=== PATIENT | male | born 1940 | race Caucasian/White ===

== ENCOUNTER 2021-05-29 10:10 | Observation (INO) ==
[2021-05-29 11:49] LABS: Basophils # 0.1 K/mcL (0.0-0.2); Basophils % 0.6 %; Eosinophils # 0.6 K/mcL (0.0-0.6); Eosinophils % 5.3 %; Hematocrit 32.2 % (37.5-50.1); Hemoglobin 10.2 g/dL (12.9-16.9); Immature Granulocytes % 2.5 % (0-4); Lymphocytes # 3.5 K/mcL (0.6-4.6); Lymphocytes % 32.1 %; Mean Corpuscular HGB Conc 31.7 g/dL (31.6-35.5); Mean Corpuscular Hemoglobin 28.2 pg (28.0-33.3); Mean Platelet Volume 10.3 fL (9.4-12.4); Monocytes # 0.9 K/mcL (0.0-1.3); Monocytes % 7.8 %; Neutrophils # 5.6 K/mcL (1.6-8.9); Platelet Count 245 K/mcL (140-400); Red Blood Count 3.62 M/mcL (4.19-5.50); Red Cell Distribution Width 13.2 % (11.5-14.5); Segmented Neutrophils % 51.7 %; White Blood Count 10.8 K/mcL (4.3-11.1)
[2021-05-29] MEDS ORDERED: Ipratropium/Albuterol Neb 3 ML ONE (11:55)
[2021-05-29] MEDS: Ipratropium/Albuterol Neb 3 ML IH ONE (11:59)
[2021-05-29 12:00] LABS: INR 1.1
[2021-05-29 12:02] LABS: Activated Partial Thrombo Time 31.6 Seconds (26.0-36.0)
[2021-05-29 12:03] LABS: Alanine Aminotransferase 13 Units/L (7-52); Albumin 3.7 g/dL (3.5-5.7); Albumin/Globulin Ratio 1.2 (1.1-2.2); Alkaline Phosphatase 155 Units/L (34-104); Aspartate Amino Transferase 13 Units/L (13-39); BUN/Creatinine Ratio 31 (6-26); Bilirubin,Total 0.3 mg/dL (0.3-1.0); Blood Urea Nitrogen 41 mg/dL (8-23); Calcium 8.6 mg/dL (8.6-10.3); Carbon Dioxide 25 mEq/L (23-29); Chloride 104 mEq/L (98-107); Globulin 3.2 g/dL (2.4-3.5); Glucose 91 mg/dL (70-105); Magnesium 1.7 mg/dL (1.6-2.6); Osmolality,Calculated 290 (280-300); Phosphorous 2.7 mg/dL (2.7-4.5); Sodium 135 mEq/L (136-145); Total Protein 6.9 g/dL (6.4-8.9); eGFR For African Americans > 60 (> 60); eGFR For Non-African Americans 52 (> 60)
[2021-05-29 12:13] LABS: Bilirubin,Urine Negative (Negative); Blood,Urine Negative (Negative); Clarity,Urine Clear (Clear); Color,Urine Yellow (Yellow); Glucose,Urine (UA) Normal (Normal); Ketones,Urine Negative (Negative); Leukocyte Esterase,Urine Trace (Negative); Nitrite,Urine Negative (Negative); Protein,Urine Negative (Neg-Trace); Urobilinogen,Urine Normal (Normal)
[2021-05-29] MEDS ORDERED: Isovue-370 500 ML BOTTLE IVP ONE (12:23)
[2021-05-29 12:33] LABS: WBC,Urine 0-3 per hpf (0-3)
[2021-05-29] MEDS ORDERED: *HR* Heparin 5,000 UNIT/ML VIAL IVP PRN ×2 (13:20)
[2021-05-29] MEDS ORDERED: *HR* Heparin 5,000 UNIT/ML VIAL IVP ONE (13:20)
[2021-05-29] MEDS ORDERED: Heparin 25,000UNIT/250ML 1/2NS 25,000 UNIT/250 ML IV.SOLN IVC SCH (13:30)
[2021-05-29] MEDS ORDERED: Naloxone 0.4 MG/ML INJ IVP PRN (14:23)
[2021-05-29] MEDS ORDERED: Acetaminophen 325 MG TABLET PO PRN (14:28)
[2021-05-29] MEDS ORDERED: Ondansetron 4 MG/2 ML VIAL IVP PRN (14:28)
[2021-05-29] MEDS ORDERED: Dextrose Gel 15 GM/37.5 ML TUBE PO PRN ×2 (15:13)
[2021-05-29] MEDS ORDERED: *HR* Dextrose 50 % in Water (Syg) 50 ML SYRINGE IVP PRN (15:13)
[2021-05-29] MEDS ORDERED: D5% in Water 1,000 ML IVC PRN (15:13)
[2021-05-29] MEDS ORDERED: Perflutren Lipid Microsphere 1.3 ML in 0.9 % Sodium Chloride 8.7 ML IVP PRN (15:17)
[2021-05-29] MEDS: Ipratropium/Albuterol Neb 3 ML IH SCH ×3 (15:55→23:56)
[2021-05-29] MEDS: levoFLOXacin 750 MG/150 ML 750 MG/150 ML BAG IVPB SCH (18:02)
[2021-05-29] MEDS: Insulin LISPRO 300 UNITS/3 ML VIAL SUBQ SCH (18:03)
[2021-05-29] MEDS: MethylPREDNISolone 40 MG/ML VIAL IVP SCH (18:05)
[2021-05-29] MEDS: Budesonide/Formoterol 160/4.5 1 PUFF INH IH SCH (19:46)
[2021-05-29 20:43] LABS: Estimated Average Glucose 252 mg/dl; Hemoglobin A1C 10.4 %
[2021-05-29] MEDS ORDERED: Insulin LISPRO 300 UNITS/3 ML VIAL SUBQ SCH (21:00)
[2021-05-29] MEDS ORDERED: Insulin DETEMIR 100 UNIT/ML per UNIT SUBQ ONE (21:00)
[2021-05-30] MEDS: Ipratropium/Albuterol Neb 3 ML IH SCH ×4 (00:01→12:47)
[2021-05-30 03:54] LABS: Hematocrit 30.2 % (37.5-50.1); Hemoglobin 9.5 g/dL (12.9-16.9); Mean Corpuscular HGB Conc 31.5 g/dL (31.6-35.5); Mean Corpuscular Hemoglobin 27.8 pg (28.0-33.3); Mean Corpuscular Volume 88.3 fL (83.0-100.0); Mean Platelet Volume 10.7 fL (9.4-12.4); Platelet Count 223 K/mcL (140-400); Red Blood Count 3.42 M/mcL (4.19-5.50); Red Cell Distribution Width 13.2 % (11.5-14.5)
[2021-05-30 04:12] LABS: Calcium 7.9 mg/dL (8.6-10.3); Chol/HDL Ratio 3.5 (0-4.9)
[2021-05-30] MEDS: MethylPREDNISolone 40 MG/ML VIAL IVP SCH (05:34)
[2021-05-30] MEDS: Budesonide/Formoterol 160/4.5 1 PUFF INH IH SCH (08:17)
[2021-05-30] MEDS ORDERED: amLODIPine 5 MG TABLET PO SCH (09:00)
[2021-05-30] MEDS ORDERED: Loratadine 10 MG TABLET PO SCH (09:00)
[2021-05-30] MEDS ORDERED: CARVEDILOL 40 MG PO SCH (09:00)
[2021-05-30] MEDS ORDERED: Insulin DETEMIR 100 UNIT/ML X5UNITS SUBQ SCH ×2 (09:00→21:00)
[2021-05-30] MEDS ORDERED: lisinopriL 20 MG TABLET PO SCH (09:00)
[2021-05-30] MEDS ORDERED: Furosemide 20 MG TABLET PO SCH (09:00)
[2021-05-30] MEDS ORDERED: Aspirin 81 MG TAB.CHEW PO SCH (09:00)
[2021-05-30] MEDS: levoFLOXacin 750 MG/150 ML 750 MG/150 ML BAG IVPB SCH (11:06)
[2021-05-30] MEDS: Insulin LISPRO 300 UNITS/3 ML VIAL SUBQ SCH ×2 (11:21→11:41)
[2021-05-30 11:24] VITALS: BP 155/69; PULSE 70; RESP 20; TEMP 98.8; O2SAT 92
[2021-05-30] MEDS ORDERED: *HR* Rivaroxaban 15 MG TABLET PO SCH (15:00)
[2021-05-30] MEDS ORDERED: Insulin LISPRO 300 UNITS/3 ML VIAL SUBQ SCH (16:30)
== END 2021-05-30 14:55 | disposition home or self-care (01) ==
LOC: INPGRE 10:10 → EMEROOGRE 10:10 → INPGRE 14:55
PROVIDERS: ADMIT Family Medicine; ATTEND Family Medicine